=== PATIENT | male | born 1985 | race Caucasian/White ===

== ENCOUNTER 2017-09-07 17:51 | Emergency (ER) | payer OTHER ==
[~2017-09-07] VITALS: Ht 180.3 cm; Wt 81.5 kg
[2017-09-07 17:53] VITALS: BP 135/98; PULSE 122; RESP 30; TEMP 98.6; O2SAT 95
--- NOTE | 2017-09-07 18:28 | PD ---
HPI Chief Complaint: Respiratory Distress Time Seen by Provider: 18:24 Travel History International Travel<30 days: No Contact w/Intl Traveler<30days: No Traveled to known affect area: No History of Present Illness HPI 32-year-old male with history of asthma presents emergency department for evaluation of asthma exacerbation worsening over the last 2-3 hours. Patient has been having some trouble with his asthma over the last couple of weeks but [place] the [place] He began to have chest tightness and wheezing. He had his nebulizer but he did not have anywhere to plug it in. He cannot find his inhaler. Denies any significant pain. No recent illnesses, fever, or chills. He has no other symptoms to report. PFSH Past Medical History Asthma: Yes Respiratory: Yes Social History Tobacco Use: No Allergies-Medications (Allergen,Severity, Reaction): Coded Allergies: No Known Allergies (Unverified , 09/07/17) Reported Meds & Prescriptions Reported Meds & Active Scripts Active Albuterol Neb (Albuterol Sulfate) 2.5 Mg/3 Ml Neb 2.5 Mg NEB Q4HR NEB PRN Proair Hfa 8.5 GM Inh (Albuterol Sulfate) 90 Mcg/Act Aer 2 Puff INH Q4HR PRN 108 mcg/actuation Prednisone 50 Mg Tab 50 Mg PO DAILY 5 Days Review of Systems Except as stated in HPI: all other systems reviewed are Neg Physical Exam Narrative GENERAL: Well-nourished male patient ambulatory no acute distress. SKIN: Focused skin assessment warm/dry. HEAD: Atraumatic. Normocephalic. EYES: Pupils equal and round. No scleral icterus. No injection or drainage. ENT: No nasal bleeding or discharge. Mucous membranes pink and moist. NECK: Trachea midline. No JVD. CARDIOVASCULAR: Tachycardic rate and rhythm. No murmur appreciated. RESPIRATORY: No accessory muscle use. Diminished with inspiratory and expiratory wheeze to auscultation. Breath sounds equal bilaterally. GASTROINTESTINAL: Abdomen soft, non-tender, nondistended. Hepatic and splenic margins not palpable. MUSCULOSKELETAL: No obvious deformities. No clubbing. No cyanosis. No edema. NEUROLOGICAL: Awake and alert. No obvious cranial nerve deficits. Motor grossly within normal limits. Normal speech. PSYCHIATRIC: Appropriate mood and affect; insight and judgment normal. Data Data Last Documented VS Vital Signs Date Time Temp Pulse Resp B/P (MAP) Pulse Ox O2 Delivery O2 Flow Rate FiO2 09/07/17 20:09 09/07/17 18:29 114 25 95 Room Air 09/07/17 17:53 98.6 Orders Orders Chest, Single Ap (09/07/17 18:27) Ecg Monitoring (09/07/17 18:27) Iv Access Insert/Monitor (09/07/17 18:27) Oximetry (09/07/17 18:27) Oxygen Administration (09/07/17 18:27) Methylprednisolone So Succ Inj (Solumedr (09/07/17 18:30) Albuterol-Ipratropium Neb (Duoneb Neb) (09/07/17 18:30) Sodium Chloride 0.9% Flush (Ns Flush) (09/07/17 18:30) Ed Discharge Order (09/07/17 19:51) MDM Medical Decision Making Medical Screen Exam Complete: Yes Emergency Medical Condition: Yes Medical Record Reviewed: Yes Differential Diagnosis Asthma exacerbation versus bronchospasm versus anxiety versus pneumonia Narrative Course 32-year-old male presents emergency department for evaluation of asthma exacerbation. Patient appears without distress. He is tachycardic with inspiratory and expiratory wheeze. Patient is given IV Solu-Medrol and 3 DuoNeb treatments. Upon reassessment, he verbalizes marked improvement in his symptoms. He will be given prescription for inhaler, additional nebulizer treatments, and a 5 day course of oral steroids. He agrees to return immediately with any acute worsening symptoms. Diagnosis Primary Impression: Asthma exacerbation Qualified Codes: J45.41 - Moderate persistent asthma with (acute) exacerbation Referrals: Primary Care Physician Patient Instructions: Asthma (ED), General Instructions Departure Forms: Tests/Procedures, Work Release Enter return to work date: Sep 09, 2017 Additional Instructions: Follow-up with a primary care provider Return immediately with any acute worsening symptoms Med/Other Pt SpecificInfo: Prescription(s) given Scripts Albuterol Neb (Albuterol Neb) 2.5 Mg/3 Ml Neb 2.5 MG NEB Q4HR NEB Y for SHORTNESS OF BREATH, #60 NEBULE 0 Refills Prov: Rach Lerner 09/07/17 Albuterol 8.5 GM Inh (Proair Hfa 8.5 GM Inh) 90 Mcg/Act Aer 2 PUFF INH Q4HR Y for SHORTNESS OF BREATH, #1 INHALER 0 Refills 108 mcg/actuation Prov: Rach Lerner 09/07/17 Prednisone (Prednisone) 50 Mg Tab 50 MG PO DAILY for 5 Days, #5 TAB 0 Refills Prov: Rach Lerner 09/07/17 Disposition: 01 DISCHARGE HOME Condition: Stable Rach Lerner Sep 07, 2017 18:28
[2017-09-07 18:29] VITALS: BP 134/87; PULSE 118; RESP 25; O2SAT 97
[2017-09-07] MEDS ORDERED: methylPREDNISolone SOD SUCC 125 MG/2 ML VIAL IV PUSH ONE (18:30)
[2017-09-07] MEDS ORDERED: SODIUM CHLORIDE 0.9% FLUSH 10 ML FLUSH IVF PRN (18:30)
--- NOTE | 2017-09-07 18:46 | RADRPT ---
EXAM DATE/TIME: 09/07/2017 18:30 [facility] COMPARISON: No previous studies available for comparison. INDICATIONS : Wheezing MEDICAL HISTORY : None. SURGICAL HISTORY : None. ENCOUNTER: Initial ACUITY: 2 weeks PAIN SCORE: 0/10 LOCATION: chest FINDINGS: A single view of the chest demonstrates the lungs to be symmetrically aerated without evidence of mas s, infiltrate or effusion. The cardiomediastinal contours are unremarkable. Osseous structures are intact. CONCLUSION: 1. No acute cardiopulmonary findings. Alex Nguyen MD on September 07, 2017 at 18:44 Board Certified Radiologist. This report was verified electronically.
[2017-09-07] MEDS: RESP: ALBUTEROL 2.5 MG/IPRATROPIUM 0.5 MG NEB (SCH) INH (19:14)
[2017-09-07] MEDS ORDERED: ALBUAER3 INH (19:53)
[2017-09-07] MEDS ORDERED: PRED50 PO (19:53)
[2017-09-07] MEDS ORDERED: ALBU0.08 NEB (19:53)
== END 2017-09-07 20:15 | disposition home or self-care (01) ==
LOC: NEPE 17:51
DX: J45.41 Moderate persistent asthma with (acute) exacerbation (principal)
CPT/HCPCS: 71045; 94640; 94664; 96374; 99284; J2930